=== PATIENT | female | born 1970 | race Caucasian/White ===

== ENCOUNTER → 2016-03-19 | Outpatient (CLI) | payer BC ==
[~2016-03-19] MED LIST: FLUTICASONE PR50 MCG; IBUPROFEN400 MG PO; LORATADINE10 MG PO; OXAYDO5 MG PO; OXYCODONE IR PO; SUDAFED30 MG PO
--- NOTE | 2016-03-19 15:36 | DIAGNOSTIC IMAGING REPORT ---
PROCEDURE: US COMPLETE PELVIC W/TRANSVAG INDICATION: PELVIC PAIN TECHNIQUE: Transabdominal and endovaginal lambert scale and color Doppler sonographic images of the female pelvis were obtained. COMPARISON: CT of the pelvis of 08/04/2013 FINDINGS: TRANSABDOMINAL SCANS: The uterus is of normal size 7.2 x 3.8 x 3.9 cm Kidneys are normal. TRANSVAGINAL SCANS: The uterus is anteverted. Myometrium is normal. The endometrium is vascular and measures 6.5 mm. Right ovary is normal measuring 4.2 x 3.5 x 3.0 cm. The left ovary is measuring 5.9 x 3.2 x 3.5 cm. There is a complex cyst measuring 5.1 x 2.6 x 2.9 cm. IMPRESSION: 1. Complex left ovarian cyst measuring 5.1 x 2.6 x 2.9 cm
--- NOTE | 2016-03-19 16:21 | DIAGNOSTIC IMAGING REPORT ---
PROCEDURE: MG BILATERAL SCREENING W/CAD INDICATION: Pain. Family history breast carcinoma (mother). TECHNIQUE: Bilateral CC and MLO digital views. COMPARISON: Compared to 06/07/2013, 05/31/2012. FINDINGS: Computer-aided detection applied. Mildly dense. No change. IMPRESSION: 1. Negative mammogram. RESULT CODE: 1- Negative. A. A negative report should not delay biopsy if a dominant or clinically suspicious mass is present. 10-15% of cancers are not identified by x-ray. B. A negative report may reinforce clinical impression. C. Adenosis and dense breasts may obscure an underlying neoplasm. D. False positive reports average 6-10%. E.. A yearly screening mammogram is recommended. A reminder letter will be scheduled.
== END ==
LOC: US SRH 13:55
DX: N83.292 Other ovarian cyst, left side (principal); Z12.31 Encounter for screening mammogram for malignant neoplasm of breast; Z80.3 Family history of malignant neoplasm of breast

== ENCOUNTER 2016-03-23 17:20 | Inpatient (IN) | payer BC ==
[~2016-03-23] VITALS: Ht 177.8 cm; Wt 145.8 kg
--- NOTE | 2016-03-23 18:11 | ED ORDER SUMMARY ---
..... Patient: SHARITA CORDOBA OrderSheet [facility] VisitID: [id number] [address] [place] [address] 45y, F Registration Date/Time: 03/23/2016 ORDER SHEET Weight: 141.5 kg (stated) Allergies: Ventolin when given with erythromycin GENERAL ORDERS: Ankle 3 or 4V Right Urgent (17:56 03/23/2016 EKoroleva P.A.-C) (Ack 18:01 LTapper) (18:37 EInderbitzen R.N.) Splint (LE) (Right) (Fiberglass) (19:20 03/23/2016 EKoroleva P.A.-C) (19:41 LMuller) Splint (LE) (Right) (Short Leg Posterior) (19:39 03/23/2016 EKoroleva P.A.-C) (19:41 LMuller) MEDICATION ORDERS: Dilaudid IM 0.5 mg (HIGH ALERT MEDICATION, NOW) (17:56 03/23/2016 EKoroleva P.A.-C) (Cancelled: Other18:03 EKoroleva P.A.-C) Phenergan IM 12.5 mg (HIGH ALERT MEDICATION, NOW) (17:56 03/23/2016 EKoroleva P.A.-C) (Cancelled: Other18:03 EKoroleva P.A.-C) Phenergan IV 12.5 mg (HIGH ALERT MEDICATION, NOW) (18:12 03/23/2016 EKoroleva P.A.-C) (18:20 EInderbitzen R.N.) IV FLUIDS: Dilaudid IV 0.5 mg (HIGH ALERT MEDICATION, NOW) (18:12 03/23/2016 EKoroleva P.A.-C) (18:20 EInderbitzen R.N.) Dilaudid IV 1 mg (HIGH ALERT MEDICATION, NOW) (18:25 03/23/2016 EKoroleva P.A.-C) (18:31 EInderbitzen R.N.) Dilaudid IV 1 mg (HIGH ALERT MEDICATION, NOW) (19:52 03/23/2016 Tata Adam) (19:57 Omkar Luz) ORDER SHEET NOTES: [Electronically signed by Katerine Deras P.A.-C (19:26 03/23/2016)] [Electronically signed by Yen Springer R.N. (20:23 03/23/2016)] [Electronically locked/signed by Yen Springer R.N. (20:23 03/23/2016)]
--- NOTE | 2016-03-23 18:11 | ED NURSING NOTES ---
Clinical Report - Nurses [facility] [address] [place] [address] 03/23/2016 17:21 [id number] TRI[facility] Triage time 17:50 Mar 23 2016. Acuity: LEVEL 3. Chief Complaint: INJURY TO RIGHT ANKLE. 17:50 03/23/16. SEPSIS SCREEN: Sepsis Screen. Negative (no infection suspected/documented). CARA COMA SCORE: Cara Coma Scale: 15- eyes open spontaneously (4); best verbal response- oriented x 4 (5); best motor response- obeys commands (6). --18:02 Yen Springer R.N. 17:50 03/23/16. BP: 140/101. HR: 88. RR: 20. O2 saturation: 100%. Temp: 98.1 F. Pain level now 10/10. --18:02 Yen pSringer R.N. Weight: 141.5 kg stated. Height/Length: 70 inches Per Patient. BMI: 44.8. --17:50 Yen Springer R.N. Medications Loratadine-Pseudoephedrine Oral. --17:57 Yen Springer R.N. Fluticasone Furoate Nasal. --17:57 Yen Springer R.N. Medication/allergy information source: the patient. --18:02 Yen Springer R.N. Allergies Ventolin when given with erythromycin. --17:58 Yen Springer R.N. History Arrived by private vehicle. Historian: patient. Accompanied by family. Mechanism of injury: sustained a twisting injury and fell. She has had trouble walking. No numbness, tingling, weakness, neck pain or back pain. 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 PAST MEDICAL HX: Immunizations: up-to-date. SOCIAL HX: Never smoker. Occasional alcohol use. History of drug use: marijuana. No infectious disease exposure. ABUSE ASSESSMENT: No report of abuse. SELF HARM ASSESSMENT: A self harm assessment was performed. The patient answered "no" to the question "Have you recently felt down, depressed, or hopeless?", "Have you noticed less interest or pleasure in doing things?", "Do you have thoughts of harming or killing yourself?", "Are you here because you tried to hurt yourself?", "Have you ever tried to hurt yourself before today?", "Have you recently had thoughts about harming or killing others?" and "Do you have any dangerous items in your possession?". FALL RISK ASSESSMENT: Fall risk assessment completed. No fall risk identified. NUTRITIONAL RISK ASSESSMENT: The nutritional risk assessment revealed no deficiencies. FUNCTIONAL ASSESSMENT: Functional assessment: no impairments noted. LEARNING NEEDS ASSESSMENT: The learning needs assessment revealed no barriers. SKIN INTEGRITY ASSESSMENT: Skin integrity risk assessment completed. No skin integrity risk identified. --18:02 Yen Springer R.N. PROBLEMS: Allergies. --17:59 Yen Springer R.N. ADDITIONAL SURGERIES: Divinci resection of bladder. --17:59 Yen Springer R.N. Interventions ID band on patient. --18:02 Yen Springer R.N. PHYSICAL ASSESSMENT 17:50 03/23/16. To room via wheelchair. GENERAL / NEURO / PSYCH: Oriented X 4. Alert. Appears in no acute distress. Appears in pain. CVS: Pulses: right dorsalis pedis 2+, left dorsalis pedis 2+, right posterior tibial 2+ and left posterior tibial 2+. EXTREMITIES: The patient was unable to bear weight. Right ankle: tenderness, swelling, ecchymosis and deformity. Limited ROM secondary to pain (diminished plantar flexion, dorsiflexion, inversion and eversion). SKIN: Skin intact. Skin is warm and dry. --18:21 Yen Springer R.N. NURSING PROGRESS NOTES 17:50 03/23/16. The initial plan of care for this patient includes an assessment with efforts to address patient positioning; the presence of pain; impairment of the musculoskeletal system. This plan of care was discussed with the patient and spouse. Cold pack applied to the right ankle. Reassurance given. Patient identifiers checked. Call light placed in reach. Side rails up x 1. Bed placed in lowest position. Brakes of bed on. Patient ready for evaluation. --18:19 Yen Springer R.N. 18:10 03/23/2016 Site #1 started via IV in the left hand with an 20g angiocath, with aseptic technique and good blood return; one attempt. Blood drawn: rainbow set. Labeled in the presence of the patient and held. --18:19 Yen Springer R.N. 18:11 03/23/2016 Dilaudid (HYDROmorphone HCl PF) IVP 0.5 mg given over 1 minute(s) via site #1. Allergies verified, confirmed 5 rights and sedative warning given to the patient. IV patency established. IV site checked: no pain, redness, or swelling. IV flushed thoroughly pre- and post-medication administration. IVP given by RN. --18:20 Yen Springer R.N. <<STRICKEN ENTRY-- 18:12 03/23/2016 PHENERGAN (Promethazine HCl) IVP 12.5 mg given over 5 hour(s) via site #1. Allergies verified and confirmed 5 rights. IV patency established. IV site checked: no pain, redness, or swelling. IV flushed thoroughly pre- and post-medication administration. IVP given by RN. --18:20 Yen Springer R.N. --END STRIKE>> Change to Details. --20:13 Yen Springer R.N. 18:30 03/23/2016 Dilaudid (HYDROmorphone HCl PF) IVP 1 mg given over 1 minute(s) via site #1. Allergies verified, confirmed 5 rights and sedative warning given to the patient. IV patency established. IV site checked: no pain, redness, or swelling. IV flushed thoroughly pre- and post-medication administration. IVP given by RN. --18:31 Yen Springer R.N. 18:36 03/23/16. BP: 141/95. HR: 88. RR: 16. O2 saturation: 95%. Pain level now 6/10. --18:37 Yen Springer R.N. 18:36 03/23/16. ( ortho to see patient). --18:37 Yen Springer R.N. Sugar tong lower extremity splint applied to right leg and ankle by tech and orthopedist. Distal pulses intact, sensation intact and motor within normal limits. --19:41 Deana Gore 19:52 03/23/2016 Dilaudid (HYDROmorphone HCl PF) IVP 1 mg given over 1 minute(s) via site #1. Allergies verified, confirmed 5 rights and sedative warning given to the patient. IV patency established. IV site checked: no pain, redness, or swelling. IV flushed thoroughly pre- and post-medication administration. IVP given by RN. --19:57 Yen Springer R.N. 20:04 03/23/16. BP: 129/94. HR: 84. RR: 16. O2 saturation: 97%. Temp: 98.2 F. Pain level now 6/10. --20:04 Yen Springer R.N. 18:12 03/23/2016 PHENERGAN (Promethazine HCl) IVP 12.5 mg given over 5 minute(s) via site #1. Allergies verified and confirmed 5 rights. IV patency established. IV site checked: no pain, redness, or swelling. IV flushed thoroughly pre- and post-medication administration. IVP given by RN. --20:13 Yen Springer R.N. DISPOSITION / DISCHARGE 20:14 03/23/2016 Site #[address] upon admission; patent. Good blood return present; flushes easily. --20:14 Yen Springer R.N. 20:15 03/23/16. Condition at departure: improved and stable. The goals identified in the patient's plan of care were met. Disposition: observation in Acute Care (208). Transported via stretcher. Report was given to a nurse via a phone call. Report included patient's care, treatment, medications, reviewed medication reconcilliation, and condition (including any recent changes or anticipated changes). All questions were answered. (, CLOVIS). FALL RISK ASSESSMENT: Fall risk assessment completed. No fall risk identified. --20:15 Yen Springer R.N. 20:01 03/23/16. BP: 129/94. HR: 84. RR: 16. O2 saturation: 97%. Temp: 98.2 F. Pain level now 08/15. --20:15 Yen Springer R.N. Departure time: 20:23 Mar 23 2016. --20:23 Yen Springer R.N. Locked/Released at 03/23/2016 20:23 by Yen Springer R.N.
--- NOTE | 2016-03-23 18:11 | ED NURSING NOTES ---
Clinical Report - Nurses [facility] [address] [place] [address] 03/23/2016 17:21 [id number] Triage time 17:50 Mar 23 2016. Acuity: LEVEL 3. Chief Complaint: INJURY TO RIGHT ANKLE. 17:50 03/23/16. SEPSIS SCREEN: Sepsis Screen. Negative (no infection suspected/documented). CARA COMA SCORE: Cara Coma Scale: 15- eyes open spontaneously (4); best verbal response- oriented x 4 (5); best motor response- obeys commands (6). --18:02 Yen Springer R.N. 17:50 03/23/16. BP: 140/101. HR: 88. RR: 20. O2 saturation: 100%. Temp: 98.1 F. Pain level now 10/10. --18:02 Yen Springer R.N. Weight: 141.5 kg stated. Height/Length: 70 inches Per Patient. BMI: 44.8. --17:50 Yen Springer R.N. Medications Loratadine-Pseudoephedrine Oral. --17:57 Yen Springer R.N. Fluticasone Furoate Nasal. --17:57 Yen Springer R.N. Medication/allergy information source: the patient. --18:02 Yen Springer R.N. Allergies Ventolin when given with erythromycin. --17:58 Yen Springer R.N. History Arrived by private vehicle. Historian: patient. Accompanied by family. Mechanism of injury: sustained a twisting injury and fell. She has had trouble walking. No numbness, tingling, weakness, neck pain or back pain. 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 PAST MEDICAL HX: Immunizations: up-to-date. SOCIAL HX: Never smoker. Occasional alcohol use. History of drug use: marijuana. No infectious disease exposure. ABUSE ASSESSMENT: No report of abuse. SELF HARM ASSESSMENT: A self harm assessment was performed. The patient answered "no" to the question "Have you recently felt down, depressed, or hopeless?", "Have you noticed less interest or pleasure in doing things?", "Do you have thoughts of harming or killing yourself?", "Are you here because you tried to hurt yourself?", "Have you ever tried to hurt yourself before today?", "Have you recently had thoughts about harming or killing others?" and "Do you have any dangerous items in your possession?". FALL RISK ASSESSMENT: Fall risk assessment completed. No fall risk identified. NUTRITIONAL RISK ASSESSMENT: The nutritional risk assessment revealed no deficiencies. FUNCTIONAL ASSESSMENT: Functional assessment: no impairments noted. LEARNING NEEDS ASSESSMENT: The learning needs assessment revealed no barriers. SKIN INTEGRITY ASSESSMENT: Skin integrity risk assessment completed. No skin integrity risk identified. --18:02 Yen Springer R.N. PROBLEMS: Allergies. --17:59 Yen Springer R.N. ADDITIONAL SURGERIES: Divinci resection of bladder. --17:59 Yen Springer R.N. Interventions ID band on patient. --18:02 Yen Springer R.N. PHYSICAL ASSESSMENT 17:50 03/23/16. To room via wheelchair. GENERAL / NEURO / PSYCH: Oriented X 4. Alert. Appears in no acute distress. Appears in pain. CVS: Pulses: right dorsalis pedis 2+, left dorsalis pedis 2+, right posterior tibial 2+ and left posterior tibial 2+. EXTREMITIES: The patient was unable to bear weight. Right ankle: tenderness, swelling, ecchymosis and deformity. Limited ROM secondary to pain (diminished plantar flexion, dorsiflexion, inversion and eversion). SKIN: Skin intact. Skin is warm and dry. --18:21 Yen Springer R.N. NURSING PROGRESS NOTES 17:50 03/23/16. The initial plan of care for this patient includes an assessment with efforts to address patient positioning; the presence of pain; impairment of the musculoskeletal system. This plan of care was discussed with the patient and spouse. Cold pack applied to the right ankle. Reassurance given. Patient identifiers checked. Call light placed in reach. Side rails up x 1. Bed placed in lowest position. Brakes of bed on. Patient ready for evaluation. --18:19 Yen Springer R.N. 18:10 03/23/2016 Site #1 started via IV in the left hand with an 20g angiocath, with aseptic technique and good blood return; one attempt. Blood drawn: rainbow set. Labeled in the presence of the patient and held. --18:19 Yen Springer R.N. 18:11 03/23/2016 Dilaudid (HYDROmorphone HCl PF) IVP 0.5 mg given over 1 minute(s) via site #1. Allergies verified, confirmed 5 rights and sedative warning given to the patient. IV patency established. IV site checked: no pain, redness, or swelling. IV flushed thoroughly pre- and post-medication administration. IVP given by RN. --18:20 Yen Srpinger R.N. <<STRICKEN ENTRY-- 18:12 03/23/2016 PHENERGAN (Promethazine HCl) IVP 12.5 mg given over 5 hour(s) via site #1. Allergies verified and confirmed 5 rights. IV patency established. IV site checked: no pain, redness, or swelling. IV flushed thoroughly pre- and post-medication administration. IVP given by RN. --18:20 Yen Springer R.N. --END STRIKE>> Change to Details. --20:13 Yen Springer R.N. 18:30 03/23/2016 Dilaudid (HYDROmorphone HCl PF) IVP 1 mg given over 1 minute(s) via site #1. Allergies verified, confirmed 5 rights and sedative warning given to the patient. IV patency established. IV site checked: no pain, redness, or swelling. IV flushed thoroughly pre- and post-medication administration. IVP given by RN. --18:31 Yen Springer R.N. 18:36 03/23/16. BP: 141/95. HR: 88. RR: 16. O2 saturation: 95%. Pain level now 6/10. --18:37 Yen Springer R.N. 18:36 03/23/16. ( ortho to see patient). --18:37 Yen Springer R.N. Sugar tong lower extremity splint applied to right leg and ankle by tech and orthopedist. Distal pulses intact, sensation intact and motor within normal limits. --19:41 Deana Gore 19:52 03/23/2016 Dilaudid (HYDROmorphone HCl PF) IVP 1 mg given over 1 minute(s) via site #1. Allergies verified, confirmed 5 rights and sedative warning given to the patient. IV patency established. IV site checked: no pain, redness, or swelling. IV flushed thoroughly pre- and post-medication administration. IVP given by RN. --19:57 Yen Springer R.N. 20:04 03/23/16. BP: 129/94. HR: 84. RR: 16. O2 saturation: 97%. Temp: 98.2 F. Pain level now 6/10. --20:04 Yen Springer R.N. 18:12 03/23/2016 PHENERGAN (Promethazine HCl) IVP 12.5 mg given over 5 minute(s) via site #1. Allergies verified and confirmed 5 rights. IV patency established. IV site checked: no pain, redness, or swelling. IV flushed thoroughly pre- and post-medication administration. IVP given by RN. --20:13 Yen Springer R.N. DISPOSITION / DISCHARGE 20:14 03/23/2016 Site #[address] upon admission; patent. Good blood return present; flushes easily. --20:14 Yen Springer R.N. 20:15 03/23/16. Condition at departure: improved and stable. The goals identified in the patient's plan of care were met. Disposition: observation in Acute Care (208). Transported via stretcher. Report was given to a nurse via a phone call. Report included patient's care, treatment, medications, reviewed medication reconcilliation, and condition (including any recent changes or anticipated changes). All questions were answered. (, CLOVIS). FALL RISK ASSESSMENT: Fall risk assessment completed. No fall risk identified. --20:15 Yen Springer R.N. 20:01 03/23/16. BP: 129/94. HR: 84. RR: 16. O2 saturation: 97%. Temp: 98.2 F. Pain level now 08/15. --20:15 Yen Springer R.N. Departure time: 20:23 Mar 23 2016. --20:23 Yen Springer R.N. Locked/Released at 03/23/2016 20:23 by Yen Springer R.N.
--- NOTE | 2016-03-23 18:11 | ED CLINICAL REPORT ---
Clinical Report - Physicians/Mid Levels [facility] [address] [place] [place] [address] 03/23/2016 17:21 [id number] Time Seen: 19:23 Mar 23 2016. Arrived- By private vehicle. Historian- patient. HISTORY OF PRESENT ILLNESS Chief Complaint: Injury to right ankle. The injury happened just prior to arrival. The patient sustained a crush injury. Occurred at home. Patient is experiencing moderate pain. Patient denies injury to the head or neck. (Patient reports prior to arrival, while outside, stepped off 1 step of her back, into Wednesday, sustaining injury to her right ankle, falling. Reports wearing some shoes at the time. Previous fracture to the area.). REVIEW OF SYSTEMS The patient complains of pain on weight bearing. All systems otherwise negative, except as recorded above. PAST HISTORY The patient has had a prior injury to the same area (fracture). SOCIAL HISTORY Never smoker. Alcohol use. History of drug use: marijuana. ADDITIONAL NOTES The nursing notes have been reviewed. PHYSICAL EXAM Vital Signs: 03/23/2016 17:50 BP: 140/101. HR: 88. RR: 20. O2 saturation: 100%. Temp: 98.1 F. Appearance: Alert. Head: Head atraumatic. ENT: Ears normal. Nose normal. CVS: Normal heart rate and rhythm. Heart sounds normal. Respiratory: No respiratory distress. Breath sounds normal. Back: Normal inspection. No tenderness. ROM normal. No vertebral point tenderness or soft tissue tenderness. Skin: Skin intact. Skin warm. Normal skin color. Extremities: Right leg. No tenderness. Right ankle: moderate tenderness and swelling localized to the lateral malleolus and medial malleolus. Limited ROM secondary to pain (diminished plantar flexion, dorsiflexion, inversion and eversion). Medium sized joint effusion present. No ecchymosis or foreign body. Not localized to the Achilles tendon. Right foot. No erythema or tenderness. Gait: The patient was unable to bear weight. Neuro, Vascular and Tendons: Vascular status intact. No pulse deficit present. No sensory deficit. Neuro: Oriented X 3. No motor deficit. LABS, X-RAYS, AND EKG Rt Ankle X-ray: (IMPRESSION: 1. Severely comminuted trimalleolar fracture subluxation of the right ankle (distal fibula, medial malleolus, posterior malleolus, subluxation of the mortise joint with probable disruption of the syndesmosis). Electronically Final signed by:Vincenzo Tavarez MD 03/23/2016 6:37:02 PM). PROGRESS AND PROCEDURES Course of Care: Patient with trimalleolar fracture in the ER, unstable. Last ate about 2-3 hours previously. I discussed the case with Dr.. Walker, who will see patient in er. 185 Dr. Walker in ER to see patient, and further management, will admit to hospital. 03/23/2016 18:36 BP: 141/95. HR: 88. RR: 16. O2 saturation: 95%. Patient is stable. Symptoms better. Patient/family counseled. Disposition: Admitted. CLINICAL IMPRESSION Displaced right trimalleolar fracture. (Electronically signed by Katerine Deras P.A.-C 03/23/2016 19:26)
--- NOTE | 2016-03-23 18:11 | ED CLINICAL REPORT ---
Clinical Report - Physicians/Mid Levels [facility] [address] [place] [address] 03/23/2016 17:21 [id number] Time Seen: 19:23 Mar 23 2016. Arrived- By private vehicle. Historian- patient. HISTORY OF PRESENT ILLNESS Chief Complaint: Injury to right ankle. The injury happened just prior to arrival. The patient sustained a crush injury. Occurred at home. Patient is experiencing moderate pain. Patient denies injury to the head or neck. (Patient reports prior to arrival, while outside, stepped off 1 step of her back, into Wednesday, sustaining injury to her right ankle, falling. Reports wearing some shoes at the time. Previous fracture to the area.). REVIEW OF SYSTEMS The patient complains of pain on weight bearing. All systems otherwise negative, except as recorded above. PAST HISTORY The patient has had a prior injury to the same area (fracture). SOCIAL HISTORY Never smoker. Alcohol use. History of drug use: marijuana. ADDITIONAL NOTES The nursing notes have been reviewed. PHYSICAL EXAM Vital Signs: 03/23/2016 17:50 BP: 140/101. HR: 88. RR: 20. O2 saturation: 100%. Temp: 98.1 F. Appearance: Alert. Head: Head atraumatic. ENT: Ears normal. Nose normal. CVS: Normal heart rate and rhythm. Heart sounds normal. Respiratory: No respiratory distress. Breath sounds normal. Back: Normal inspection. No tenderness. ROM normal. No vertebral point tenderness or soft tissue tenderness. Skin: Skin intact. Skin warm. Normal skin color. Extremities: Right leg. No tenderness. Right ankle: moderate tenderness and swelling localized to the lateral malleolus and medial malleolus. Limited ROM secondary to pain (diminished plantar flexion, dorsiflexion, inversion and eversion). Medium sized joint effusion present. No ecchymosis or foreign body. Not localized to the Achilles tendon. Right foot. No erythema or tenderness. Gait: The patient was unable to bear weight. Neuro, Vascular and Tendons: Vascular status intact. No pulse deficit present. No sensory deficit. Neuro: Oriented X 3. No motor deficit. LABS, X-RAYS, AND EKG Rt Ankle X-ray: (IMPRESSION: 1. Severely comminuted trimalleolar fracture subluxation of the right ankle (distal fibula, medial malleolus, posterior malleolus, subluxation of the mortise joint with probable disruption of the syndesmosis). Electronically Final signed by:Vincenzo Tavarez MD 03/23/2016 6:37:02 PM). PROGRESS AND PROCEDURES Course of Care: Patient with trimalleolar fracture in the ER, unstable. Last ate about 2-3 hours previously. I discussed the case with Dr.. Walker, who will see patient in er. 185 Dr. Walker in ER to see patient, and further management, will admit to hospital. 03/23/2016 18:36 BP: 141/95. HR: 88. RR: 16. O2 saturation: 95%. Patient is stable. Symptoms better. Patient/family counseled. Disposition: Admitted. CLINICAL IMPRESSION Displaced right trimalleolar fracture. (Electronically signed by Katerine Deras P.A.-C 03/23/2016 19:26)
--- NOTE | 2016-03-23 18:11 | ED ORDER SUMMARY ---
..... Patient: SHARITA CORDOBA OrderSheet [facility] VisitID: [id number] [address] [place] [address] 45y, F Registration Date/Time: 03/23/2016 ORDER SHEET Weight: 141.5 kg (stated) Allergies: Ventolin when given with erythromycin GENERAL ORDERS: Ankle 3 or 4V Right Urgent (17:56 03/23/2016 EKoroleva P.A.-C) (Ack 18:01 LTapper) (18:37 EInderbitzen R.N.) Splint (LE) (Right) (Fiberglass) (19:20 03/23/2016 EKoroleva P.A.-C) (19:41 LMuller) Splint (LE) (Right) (Short Leg Posterior) (19:39 03/23/2016 EKoroleva P.A.-C) (19:41 LMuller) MEDICATION ORDERS: Dilaudid IM 0.5 mg (HIGH ALERT MEDICATION, NOW) (17:56 03/23/2016 EKoroleva P.A.-C) (Cancelled: Other18:03 EKoroleva P.A.-C) Phenergan IM 12.5 mg (HIGH ALERT MEDICATION, NOW) (17:56 03/23/2016 EKoroleva P.A.-C) (Cancelled: Other18:03 EKoroleva P.A.-C) Phenergan IV 12.5 mg (HIGH ALERT MEDICATION, NOW) (18:12 03/23/2016 EKoroleva P.A.-C) (18:20 EInderbitzen R.N.) IV FLUIDS: Dilaudid IV 0.5 mg (HIGH ALERT MEDICATION, NOW) (18:12 03/23/2016 EKoroleva P.A.-C) (18:20 EInderbitzen R.N.) Dilaudid IV 1 mg (HIGH ALERT MEDICATION, NOW) (18:25 03/23/2016 EKoroleva P.A.-C) (18:31 EInderbitzen R.N.) Dilaudid IV 1 mg (HIGH ALERT MEDICATION, NOW) (19:52 03/23/2016 Tata Adam) (19:57 Omkar Luz) ORDER SHEET NOTES: [Electronically signed by Katerine Deras P.A.-C (19:26 03/23/2016)] [Electronically signed by Yen Springer R.N. (20:23 03/23/2016)] [Electronically locked/signed by Yen Springer R.N. (20:23 03/23/2016)]
--- NOTE | 2016-03-23 18:40 | DIAGNOSTIC IMAGING REPORT ---
PROCEDURE: XR ANKLE 3 OR 4 VIEWS - RIGHT INDICATION: TRAUMA/INJURY TECHNIQUE: Four views. COMPARISON: None. FINDINGS: There is a severely comminuted trimalleolar fracture subluxation of the right ankle. There is a severely comminuted spiral oblique fracture the right distal fibular shaft and metaphysis with moderate of ventral apical angulation with mild lateral / posterior lateral displacement. There is a transverse fracture of the medial malleolus with one half bone width of lateral displacement. There is a comminuted vertical fracture of the posterior lateral distal tibia (posterior malleolus) with moderate impaction. There is 50% posterior subluxation and lateral subluxation of the talus with probable disruption of the syndesmosis. IMPRESSION: 1. Severely comminuted trimalleolar fracture subluxation of the right ankle (distal fibula, medial malleolus, posterior malleolus, subluxation of the mortise joint with probable disruption of the syndesmosis).
--- NOTE | 2016-03-23 19:12 | Progress Note ---
Subjective General Fell this pm and has a trimalleolar fracture of the right ankle. Admitted for ORIF
--- NOTE | 2016-03-23 19:12 | Progress Note ---
Subjective General Fell this pm and has a trimalleolar fracture of the right ankle. Admitted for ORIF
--- NOTE | 2016-03-23 20:24 | ED MED RECONCILIATION SUMMARY ---
Patient: SHARITA CORDOBA Medication Reconciliation Report [facility] VisitID: [id number] [address] [place] [address] 45y, F Registration Date/Time: 03/23/2016 Weight: 141.5 kg Height/Length: 70 in. BMI: 44.8 ALLERGIES: Ventolin when given with erythromycin The patient's Home Medications are listed below: THE FOLLOWING MEDICATIONS NEED TO BE RECONCILED: Fluticasone Furoate Nasal Loratadine-Pseudoephedrine Oral The source(s) of the original Home Medication information: patient The following Medications were given to the patient in the Emergency Department: Dilaudid [IVP] IVP 0.5 mg, administered: 03/23/2016 6:11:00 PM PHENERGAN [IVP] IVP 12.5 mg, administered: 03/23/2016 6:12:00 PM Dilaudid [IVP] IVP 1 mg, administered: 03/23/2016 6:30:00 PM Dilaudid [IVP] IVP 1 mg, administered: 03/23/2016 7:52:00 PM The following Medications were prescribed to the patient: None.
--- NOTE | 2016-03-23 20:24 | ED MAR SUMMARY ---
..... Medication Administration Record [facility] [address] [place] [address] Patient: SHARITA CORDOBA Visit ID: [id number] 45y, F Weight: 141.5 kg Height/Length: 70 in BMI: 44.8 ALLERGIES: Ventolin when given with erythromycin Given 18:11 03/23/2016 Yen Springer R.N. Medication Administered: DILAUDID [IVP] (HYDROMORPHONE HCL PF), Dose: 0.5 mg IVP over 1 minute(s), Site: #1 left hand. Medication Ordered: Dilaudid IV 0.5 mg (HIGH ALERT MEDICATION, NOW). Given 18:12 03/23/2016 Yen Springer R.N. Medication Administered: PHENERGAN [IVP] (PROMETHAZINE HCL), Dose: 12.5 mg IVP over 5 minute(s), Site: #1 left hand. Medication Ordered: Phenergan IV 12.5 mg (HIGH ALERT MEDICATION, NOW). Given 18:30 03/23/2016 Yen Springer R.N. Medication Administered: DILAUDID [IVP] (HYDROMORPHONE HCL PF), Dose: 1 mg IVP over 1 minute(s), Site: #1 left hand. Medication Ordered: Dilaudid IV 1 mg (HIGH ALERT MEDICATION, NOW). Given 19:52 03/23/2016 Yen Springer R.N. Medication Administered: DILAUDID [IVP] (HYDROMORPHONE HCL PF), Dose: 1 mg IVP over 1 minute(s), Site: #1 left hand. Medication Ordered: Dilaudid IV 1 mg (HIGH ALERT MEDICATION, NOW).
--- NOTE | 2016-03-23 20:24 | ED MED RECONCILIATION SUMMARY ---
Patient: SHARITA CORDOBA Medication Reconciliation Report [facility] VisitID: [id number] [address] [place] [address] 45y, F Registration Date/Time: 03/23/2016 Weight: 141.5 kg Height/Length: 70 in. BMI: 44.8 ALLERGIES: Ventolin when given with erythromycin The patient's Home Medications are listed below: THE FOLLOWING MEDICATIONS NEED TO BE RECONCILED: Fluticasone Furoate Nasal Loratadine-Pseudoephedrine Oral The source(s) of the original Home Medication information: patient The following Medications were given to the patient in the Emergency Department: Dilaudid [IVP] IVP 0.5 mg, administered: 03/23/2016 6:11:00 PM PHENERGAN [IVP] IVP 12.5 mg, administered: 03/23/2016 6:12:00 PM Dilaudid [IVP] IVP 1 mg, administered: 03/23/2016 6:30:00 PM Dilaudid [IVP] IVP 1 mg, administered: 03/23/2016 7:52:00 PM The following Medications were prescribed to the patient: None.
--- NOTE | 2016-03-23 20:24 | ED MAR SUMMARY ---
..... Medication Administration Record [facility] [address] [place] [place] [address] Patient: SHARITA CORDOBA Visit ID: [id number] 45y, F Weight: 141.5 kg Height/Length: 70 in BMI: 44.8 ALLERGIES: Ventolin when given with erythromycin Given 18:11 03/23/2016 Yen Springer R.N. Medication Administered: DILAUDID [IVP] (HYDROMORPHONE HCL PF), Dose: 0.5 mg IVP over 1 minute(s), Site: #1 left hand. Medication Ordered: Dilaudid IV 0.5 mg (HIGH ALERT MEDICATION, NOW). Given 18:12 03/23/2016 Yen Springer R.N. Medication Administered: PHENERGAN [IVP] (PROMETHAZINE HCL), Dose: 12.5 mg IVP over 5 minute(s), Site: #1 left hand. Medication Ordered: Phenergan IV 12.5 mg (HIGH ALERT MEDICATION, NOW). Given 18:30 03/23/2016 Yen Springer R.N. Medication Administered: DILAUDID [IVP] (HYDROMORPHONE HCL PF), Dose: 1 mg IVP over 1 minute(s), Site: #1 left hand. Medication Ordered: Dilaudid IV 1 mg (HIGH ALERT MEDICATION, NOW). Given 19:52 03/23/2016 Yen Springer R.N. Medication Administered: DILAUDID [IVP] (HYDROMORPHONE HCL PF), Dose: 1 mg IVP over 1 minute(s), Site: #1 left hand. Medication Ordered: Dilaudid IV 1 mg (HIGH ALERT MEDICATION, NOW).
--- NOTE | 2016-03-23 20:24 | ED DISCHARGE INSTRUCTIONS ---
Patient: SHARITA CORDOBA General Instructions [facility] VisitID: [id number] [place] [address] 45y, F Registration Date/Time: 03/23/2016 Displaced right trimalleolar fracture. ADDITIONAL INFORMATION Fracture:Ankle You have a break (fracture) of the ankle. This causes local pain, swelling and sometimes bruising. A fracture is treated with a splint or cast or special boot. It will take about 4-6 weeks for the fracture to heal. Surgery may be needed to fix severe injuries. Home Care: You will be given a splint, cast or boot to prevent movement at the ankle joint. Unless you were told otherwise, use crutches or a walker and do not bear weight on the injured leg until cleared by your doctor to do so. (Crutches and walkers can be rented at many pharmacies and surgical/orthopedic supply stores). Do not put weight on a splint; it will break. Keep your leg elevated to reduce pain and swelling. When sleeping, place a pillow under the injured leg. When sitting, support the injured leg so it is level with your waist. This is very important during the first 48 hours. Apply an ice pack (ice cubes in a plastic bag, wrapped in a towel) over the injured area for 20 minutes every 1-2 hours the first day. You can place the ice pack directly over the splint/cast. Continue with ice packs 3-4 times a day for the next two days, then as needed for the relief of pain and swelling. Keep the cast/splint/boot completely dry at all times. Bathe with your cast/splint/boot out of the water, protected with a large plastic bag, rubber-banded at the top end. If a boot or fiberglass cast/splint gets wet, you can dry it with a hair-dryer. You may use acetaminophen (Tylenol) or ibuprofen (Motrin, Advil) to control pain, unless another pain medicine was prescribed. [ NOTE : If you have chronic liver or kidney disease or ever had a stomach ulcer or GI bleeding, talk with your doctor before using these medicines.] Follow Up with your doctor in one week, or as advised by our staff, to be sure the bone is healing properly. If you were given a splint, it may be changed to a cast at your follow-up visit. [NOTE: A radiologist will review any X-rays that were taken. We will notify you of any new findings that may affect your care.] Get Prompt Medical Attention If Any Of The Following Occur: The plaster cast or splint becomes wet or soft The fiberglass cast or splint remains wet for more than 24 hours Increased tightness or pain under the cast or splint Toes become swollen, cold, blue, numb or tingly You have been given the following additional information: Fracture, Ankle (General) (Electronically signed by Katerine Deras P.A.-C 03/23/2016 19:26)
[2016-03-23 20:34] VITALS: BP 136/85
--- NOTE | 2016-03-23 20:36 | HISTORY AND PHYSICAL ---
ADMITTED: 03/23/2016 CHIEF COMPLAINT: 1. Right ankle pain HISTORY OF PRESENT ILLNESS: The patient was in her usual state of fair to good health when she suffered a fall. She was out walking her dog and she stepped in the mud , slipped and fell down and suffered a comminuted and displaced fracture of the right ankle and is being admitted for care of the same. MEDICAL/SURGICAL HISTORY: Past history: Positive on a number of accounts. She has had bladder cancer and had a bladder resection procedure, is not on any chemotherapy or radiation treatment and it has now been 3 years ago and for as much as she knows , she has been cured of her bladder cancer. She recently was found to have an ovarian cyst and is scheduled to see an entry specialist for care of that problem. She has diverticulosis and has had diverticulitis, which was treated just with antibiotic treatment. She has problems with her hearing, which she relates to some fertility drugs that she was taking that she thinks damaged her hearing. She has had previous surgery for placement of PE tubes for correction of a deviated septum, and for the bladder cancer as noted above. She has a history of an old fracture of the right ankle a number of years ago. MEDICATIONS: 1. She gives no history of current medications. ALLERGIES: 1. SHE IS ALLERGIC TO MYRBETRIQ. 2. POSSIBLY TO ERYTHROMYCIN. 3. VENTOLIN. SHE SAID SHE WAS ON THOSE MEDICATIONS AND JUST BEGAN FEELING UNWELL AND SHE WAS TAKEN OFF THEM AND GOT BETTER. 4. SHE HAS NO OTHER KNOWN ALLERGIES. SOCIAL HISTORY: Positive in that she is a former smoker and she does use some occasional marijuana currently. FAMILY HISTORY: Negative for any bleeding or anesthesia problems. REVIEW OF SYSTEMS: Negative for loss of consciousness, seizure disorder, problems with vision, balance or hearing. CARDIORESPIRATORY: Negative for shortness of breath, chest pain, cough, congestion, fever or chills. GASTROINTESTINAL: Positive in that she has had some nausea and some recent diarrhea, but no blood in the stools and no vomiting. GENITOURINARY: Negative for any dysuria or hematuria. She does have frequency of urination and has some problems with bladder control since she has had her bladder resection surgery. With respect to her laboratory work, she says she has had on a number of occasions elevated liver enzymes, although insofar as she is aware she does not have hepatitis. She denies diabetes, hypertension, peptic ulcer disease, [place], CVA, tuberculosis, any other cancers or tumors. PHYSICAL EXAMINATION: HEENT: Shows her head to be normocephalic and atraumatic. Her eyes are clear. Her hearing is grossly normal. There is no drainage from the ear canals. The mouth and posterior oropharynx are clear and The teeth are in good repair. The tongue is midline. NECK: Without jugular venous distention. CHEST: Symmetrical. HEART: Regular rate and rhythm. No murmurs are heard. LUNGS: Clear to auscultation. ABDOMEN: Soft and she is moderately obese. She does have some active bowel sounds that are present. BACK: In the spine, she does have some mild tenderness over the lumbosacral spine, but no palpable deformities are present. There is no tenderness involving the CVA regions. EXTREMITIES: The right lower extremity, she does have the toes, which are warm. The capillary refilling is less than 1 second. She has light touch sensation present throughout and active dorsiflexion, plantarflexion of the toes is present. The compartments are soft. She has some 1-2+ edema at the ankle. There are no open skin wounds and there is just a mild deformity. LAB/IMAGING: Her x-rays show her to have a subluxed ankle joint and there is a fracture involving the posterolateral plafond, as well as the comminuted fracture of the distal fibula and of the medial malleolus of the tibia. IMPRESSION: 1. The analysis then is comminuted displaced fracture involving the right ankle joint. PLAN: Will be for open reduction, internal fixation. We will plan to do that tomorrow barring unforeseen complication or problem. I have explained to her the nature of the surgery, where the incisions would be, how we do the repair work, the risk of deep venous thrombosis, of infection and problems with healing, of stiffness, of chronic pain in the ankle, of anesthesia complications including and she understands and accepts, and we will plan to proceed with the surgery tomorrow barring unforeseen complication or problem.
[2016-03-23] MEDS ORDERED: LORATADINE10 MG PO (21:29)
[2016-03-23] MEDS ORDERED: SUDAFED30 MG PO (21:31)
[2016-03-23] MEDS ORDERED: FLUTICASONE PR50 MCG (21:32)
[2016-03-24] VITALS (8 sets, daily range): BP systolic 94–153; BP diastolic 60–84
--- NOTE | 2016-03-24 18:25 | Postoperative Progress Note ---
Postop Progress Note Preoperate Diagnosis: Comminuted, displaced fracture right ankle. Compartment syndrome. Postoperative Diagnosis: Same Surgeon: betsy Anesthesia: Spinal Findings: As above Procedure: ORIF right ankle Complications? No Condition: Stable EBL: 100cc Blood Administered: 0 Specimen(s) removed? No Grafts or Implants? Yes Graft/Implant type: Plates and screws right ankle . (See nursing notes for details of grafts/implants)
--- NOTE | 2016-03-24 19:37 | DIAGNOSTIC IMAGING REPORT ---
PROCEDURE: XR FLUOROSCOPY OVER 1 HOUR INDICATION: SURGERY TECHNIQUE: C-arm fluoroscopy provided to Dr. Walker for right ankle ORIF Fluoroscopy time 4 minutes 31 seconds, 14 mGy). COMPARISON: Right ankle x-ray 03/23/2016 FINDINGS: AP and lateral C-arm views. Two lag screws through the medial malleolus, two lag screws through the posterior malleolus and side plate with multiple screws fixating the distal fibula. Normal alignment and positioning of the bones. IMPRESSION: 1. C-arm fluoroscopy for right ankle ORIF (performed by Dr. Walker)
--- NOTE | 2016-03-24 19:38 | OPERATIVE REPORT ---
DATE OF SURGERY: 03/24/2016 SURGEON: NANCY MARTINEZ MD PREOPERATIVE DIAGNOSIS: 1. Comminuted displaced unstable fracture of the right ankle POSTOPERATIVE DIAGNOSIS: 1. Comminuted displaced unstable fracture of the right ankle PROCEDURE PERFORMED: 1. Open reduction, internal fixation of right ankle fracture CONDITION: She is in stable condition. ESTIMATED BLOOD LOSS: Somewhere between 100-200 mL. COMPLICATIONS: None. PATHOLOGY SPECIMEN: Sent to the laboratory was none. SURGICAL TECHNIQUE: The patient was taken to the operating room, where she was given for spinal and then some general anesthesia. Prior to the surgery she was complaining of some numbness in the toes and looks like already starting to develop a compartment syndrome in the leg where she had pain with passive extension of the toes and was already getting some numbness and had difficulty with dorsiflexion of the toes and so addition of the fracture looked like she was developing a compartment syndrome and the ankle surely was tight. We did put a tourniquet on, we prepped and draped her in usual sterile fashion, made a curving longitudinal incision over the lateral aspect of the ankle, carried down through subcutaneous tissue, exposed the distal fibula. She had a very comminuted fracture extending at least the mid and distal thirds of the fibula, maybe a little bit higher, and there was also disruption of the posterior aspect of the tibial plafond and rupture of the anterior distal tibiofibular ligaments. The patient had exposure of the bone and we tied together a couple of the fragments of the fibula where she had a longitudinal split went and we were able under direct visualization to reduce the posterior malleolar fragment and then place 2 screws from anterior to posterior. We did not have to really do any soft tissue dissection to get at the front of the tibia as she had torn loose all the connections clear across to the medial side and up again, almost to the mid and distal thirds of the tibia, so it was relatively easy to get at it and we placed a couple of screws from anterior to posterior using cannulated screws, placing the cannulated pins first and then over drilling with the cannulated drill, measuring with the depth gauge, countersinking with the countersink actually from the Synthes set and then placing the appropriate length of the first cannulated screw and then we did not have quite the right length of cannulated screw for the second one, so I used one of the 4 mm cancellous screws from the Synthes set. With this, we had excellent stable fixation of the posterior malleolus. Then went back and reassembled the fibula using 0.062 inch diameter K-wires to first get it stabilized in the correct orientation with respect to the tibia and at this correct length as confirmed by both direct visualization and also by fluoroscopy and once we got the distal end stabilized then we stabilized the intermediate fragments with suture and clamps and then took the longest 1/3 tubular plate we had, bent it to conform to the lateral aspect of the fibula and secured it in place, first with the distal screw and then adjusting the length and placing proximal screws. Distal screws were cancellous screws and more proximal screws, cortical screws. Each of the screw holes was drilled with a 2.5 mm diameter drill and then depth was determined by measuring with the depth gauge. We got down to where we were at the last hole just above the level of the joint and I checked the stability and there was clearly some instability as was expected of the distal tibiofibular joint and of the ankle with the tendency for the talus to sublux laterally. So we put a syndesmosis screw across, again ensuring that the syndesmosis really was reduced appropriately and then drilling across with the 2.5 mm diameter drill, measuring with the depth gauge and placing appropriate length of self-tapping 4 mm cancellous screw. With this, we had good stable fixation of the lateral side, the medial side was still somewhat displaced. I tried to reduce it closed. We really did not want to open it because she was pretty swollen and so I tried to reduce it closed, I was able to get a perfect reduction and pinned it a couple times with the pins from the cannulated screws, tried to put a cannulated screw across there, but just we could get what was really a truly accurate reduction, so I opened it with the longitudinal incision under direct visualization, reduced the fracture and then placed a cannulated screw towards the posterior aspect of the fragment, putting in first the guidewire, and then overdrilling the guidewire and placing appropriate length of screw and then placing a 0.062 inch diameter K-wire anterior to that and across the fracture site, bending the end of the pin over, clipping it short and seating it down against the bone and with this, we had almost perfect anatomic alignment there achieved as well, so with this the ankle was stable. There was no crepitation, with full range of motion, and closed using 2-0 Polysorb nonabsorbable braided suture for the subcutaneous layer and then running 3-0 nylon suture for the skin and then just some interrupted and running nylon suture for the medial side. To close the skin I took the pressure monitoring device and measured the compartment pressures and they were unfortunately still elevated, varying between 43 and 48 in the anterior compartment and about 50-55 in the deep posterior compartment and so went back, took the nylon sutures out of the lateral incision, lying the skin to gape open and leaving it deeper, subcutaneous sutures in place, which had been placed fairly loosely, but at least provided soft tissue closure over the plate and over the bone and went back and measured the pressures. This time the pressures in both compartments were between 25 and 27, which is acceptable, and so we dressed with Xeroform, with multiple ABD pads, loosely wrapped with sterile Webril, put a sugar-tong splint with the ankle in neutral position and then loosely wrapped with an Emery bandage to secure it in place. Once this had hardened she was awakened, she was taken to the recovery room. We did inflate the tourniquet after making the initial approach.
--- NOTE | 2016-03-24 19:41 | DIAGNOSTIC IMAGING REPORT ---
PROCEDURE: XR ANKLE 1 OR 2 VIEWS - RIGHT INDICATION: post op ORIF TECHNIQUE: AP and lateral views COMPARISON: Left ankle x-ray 03/23/2016 FINDINGS: Lag screw and K-wire through the medial malleolus, two lag screws through the posterior malleolus, side plate and multiple screws overlie the distal fibula. Normal alignment and positioning of the bone fragments. Ankle mortise is intact. Splint in place. IMPRESSION: 1. Right ankle trimalleolar fracture ORIF
[2016-03-25 03:10] VITALS: BP 136/54
[2016-03-25 07:20] VITALS: BP 126/57
--- NOTE | 2016-03-25 08:35 | Progress Note ---
Subjective General Mild pain this am with good relief from meds. Splint is in good condition. NMV intact today and she has no pain with passive extension of the toes. There is light touch sensation present throughout and she can actively Df/PF them. Plan for elevation and rest today. She will need wound closure and that will likely take 7-10 days at minimum.
[2016-03-25 10:27] VITALS: BP 117/45
[2016-03-25 14:25] VITALS: BP 112/56
[2016-03-25 18:01] VITALS: BP 135/68
[2016-03-25 22:52] VITALS: BP 106/48
[2016-03-26 02:36] VITALS: BP 111/40
[2016-03-26 06:41] VITALS: BP 119/63
--- NOTE | 2016-03-26 09:07 | Progress Note ---
Subjective General VSS Afebrile Hgb A1c 7.2 She again has some tingling in the toes. There is some mild pain with passive extension also. She does have light touch sensation present throughout. Splint and bandages all removed with good result. The tingling was much better and the sensation intact throughout. The pain with passive extension resolved as well. I will keep her on Ancef as long as the wound remains open. Hgb A1c is elevated and the insulin stopped for ? reason. I will contnue the insulin sliding scale and switch to carb controlled diet.
[2016-03-26 10:22] VITALS: BP 127/87
[2016-03-26 14:30] VITALS: BP 121/66
[2016-03-26 18:20] VITALS: BP 126/79; BP 139/74
[2016-03-26 22:29] VITALS: BP 136/84
[2016-03-27 01:43] VITALS: BP 130/66
[2016-03-27 06:58] VITALS: BP 131/72
--- NOTE | 2016-03-27 10:44 | PROGRESS NOTE ---
DATE OF SERVICE: 03/27/2016 ATTENDING PHYSICIAN/PROVIDER: Qian Osullivan MD HISTORY OF PRESENT ILLNESS: The patient is status post ORIF of her right ankle fracture with a complication of compartment syndrome. Secondary to that, although she has a subcutaneous closure, she does not have skin closure. Dr. Walker left the skin open as that relieved her inner compartmental pressures. PHYSICAL EXAMINATION: On physical examination today, there is no cellulitis. Her wound looks good. Her wound is gapped about 5 mm throughout on the lateral side of her right ankle. No evidence of infection. Sterile dressing was applied. IMPRESSION: 1. Status post right ankle open reduction internal fixation with compartment syndrome and open wound, lateral. PLAN: The patient is going to have wound closure tomorrow morning. I discussed treatment options including wound remaining open versus closure and possible complications including but not limited to infection and recurrent compartment syndrome, nerve and vessel injury, pneumonia, stroke, heart attack. The patient understands and agrees.
[2016-03-27 14:25] VITALS: BP 131/72
--- NOTE | 2016-03-27 14:50 | Progress Note ---
Subjective General Consult note dictated: 45 y.o obese female with right ankle fx [id number]. Asked to consult for DM. She states she doesn't want to take any meds. Will work on diet, treat with SSI in hospital and f/u with PMD. Signing off for care- nutrition consult.
--- NOTE | 2016-03-27 18:38 | CONSULTATION REPORT ---
DATE OF CONSULTATION: 03/27/2016 CHIEF COMPLAINT: 1. Orthopedics has asked me to consult on the patient regarding diabetes and an A1c of 7.2 HISTORY OF PRESENT ILLNESS: The patient is a 45-year-old female who presented to the emergency room after a slip in the mud, and she fell and had a comminuted displaced fracture of the right ankle and taken to the OR. She was noted to have some elevation in her blood sugars mildly, and an A1c was drawn, which showed 7.2. She states also that she has had elevated blood sugars in her doctor's office in the past as well. She has refused to take any medications for this, though the primary provider has tried to start her on metformin. She states that she was treated for fertility in the past, and she had her liver damaged by metformin. She also has had bladder cancer. MEDICAL/SURGICAL HISTORY: Medical history is of bladder cancer, which she had a bladder resection. She has had ovarian cyst. She has had fertility issues, and she also feels that her facility drugs may have caused problems with her hearing. She has had an old fracture of the right ankle a number of years ago. MEDICATIONS: 1. She denies. ALLERGIES: 1. SHE SAYS SHE IS ALLERGIC TO MYRBETRIQ. 2. ALSO TO POSSIBLE ERYTHROMYCIN WITH VENTOLIN TAKEN AT THE SAME TIME. 3. 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 4. VESICARE CREATED PROBLEMS WELL. SOCIAL HISTORY: She lives with her . She is a former smoker, occasional marijuana use. FAMILY HISTORY: Negative for any diabetes. Her mother did of breast cancer as well. REVIEW OF SYSTEMS: She states that she has been trying to use her Fit-Bit. She has been conscious about her eating. She did lose about 17 pounds, but gained back 10, within the last few months. She does have some frequency of urination and some problems with bladder control. She denies any issues of heart attack, stroke or any other cancer. PHYSICAL EXAMINATION: GENERAL: She is an alert female who is talkative and appears to be in no distress. VITAL SIGNS: Blood pressure of 131/72, heart rate of 92, respirations 18, temperature 98.1, saturating 98% on room air. HEENT: Extraocular movements intact. Pupils equal, round, and reactive to light. Oropharynx is clear, with moist mucous membranes. NECK: Supple, without lymphadenopathy. LUNGS: Clear to auscultation bilaterally. HEART: Regular rate and rhythm. ABDOMEN: Soft. It is obese. It is nontender. GENITOURINARY: Deferred. RECTAL: Deferred. BREAST: Deferred. NEUROLOGIC: Cranial nerves II-XII intact. Strength and sensation grossly intact, other than right ankle is in a splint and has dressing on it. It is clean, dry, and intact. She has bruising on her right lower leg and toe area. She is able to wiggle her toes and has normal capillary reflex. LAB/IMAGING: White count was 9.6 this a.m., down from 18.4, hematocrit 30.2 postop, and platelets of 292. An A1c is 7.2, glucose in the 142 range. The rest of her Chem- 7 is normal, and INR was 1.0 on admit and urinalysis was negative, other than a few bacteria. IMPRESSION: 1. Diabetes type 2 with an A1c greater than 6.5. Offered metformin. She is not going to take this because of history of possible liver problems related to this. PLAN: 1. I recommend that she follow up with her primary provider. I do think of that as a common reaction to metformin. 2. She is not really interested or willing to take any of the GOP1 injections or other medicines at this point because she wants to talk about any of this with her as well as her regular provider, who she sees Dr. Bird. 3. Obesity. Discussed that if she does everything the same, likely she will worsen over time with her diabetes and end up on insulin, and I strongly recommend that she work on her diet and exercise when able, considering she is unwilling to take medications. 4. History of abnormal liver functions. Currently, the patient had normal liver functions on her initial evaluation, with a minimal elevation of AST at 45 and direct bilirubin was less than 0.05 and bilirubin total was 0.5, ALT was 54. So I would have the patient seen by the dietitian while she is here, hold off on anything other than low-dose insulin sliding scale and have her follow up with her regular provider as an outpatient, as she is unwilling to start on any medications at this time for her diabetes.
[2016-03-27 18:49] VITALS: BP 153/58
[2016-03-27 22:28] VITALS: BP 164/68
[2016-03-28] VITALS (7 sets, daily range): BP systolic 113–145; BP diastolic 48–78
--- NOTE | 2016-03-29 00:05 | OPERATIVE REPORT ---
DATE OF SURGERY: 03/28/2016 SURGEON: Qian Osullivan MD PREOPERATIVE DIAGNOSIS: 1. Open wound, lateral right ankle POSTOPERATIVE DIAGNOSIS: 1. Open wound, lateral right ankle PROCEDURE PERFORMED: 1. Right wound closure SURGICAL TECHNIQUE: The patient was placed in supine position on the operating table. After general anesthesia was obtained, her right leg was prepped and draped in the usual fashion. The wound was cleaned with a pulse lavage system and was evaluated for closure. The skin was not tight, and the skin edges could be easily approximated. A stapler was used to try to pull the edges in reasonably close approximation without pulling them tight or putting a lot of tension on the skin edges. That was achieved with a skin stapler. A sterile dressing was applied. The patient tolerated the procedure well, had good capillary refill at the end of the procedure. Her foot was warm.
--- NOTE | 2016-03-29 00:13 | PROGRESS NOTE ---
DATE OF SERVICE: 03/28/2016 ATTENDING PHYSICIAN/PROVIDER: Qian Osullivan MD SUBJECTIVE: The patient is in the recovery room now, and I checked her right foot for circulation. OBJECTIVE: She has good capillary refill, good warmth, good sensation, and has good both active and passive extension and flexion without unexpected discomfort. ASSESSMENT: 1. Resolving compartment syndrome PLAN: The patient is going to go back to her room when she has completely recovered from her surgery.
[2016-03-29 03:39] VITALS: BP 141/67
[2016-03-29 06:52] VITALS: BP 115/56
[2016-03-29 11:13] VITALS: BP 126/64
--- NOTE | 2016-03-29 13:17 | PROGRESS NOTE ---
DATE OF SERVICE: 03/29/2016 ATTENDING PHYSICIAN/PROVIDER: Qian Osullivan MD HISTORY OF PRESENT ILLNESS: The patient is day 1 status post wound closure, lateral side of her right ankle. She is doing well. I stopped her ice treatments to try to diminish the chance of arterial spasm or decreased circulation, which may increase her risk of recurrent compartment syndrome. She is having increased pain in her calf on the basis of that. I can still extend her toes passively without any recurrence of her pain. Her toes are warm, with good capillary refill and good sensation. IMPRESSION: 1. Status post wound closure, right foot, complicated by previous compartment syndrome PLAN: She is going to remain with her foot elevated today, and we will do a dressing change tomorrow in anticipation of discharge. She is nonweightbearing.
[2016-03-29 14:52] VITALS: BP 123/74
[2016-03-29 18:39] VITALS: BP 138/78
[2016-03-29 23:01] VITALS: BP 121/58
[2016-03-30 02:41] VITALS: BP 111/54
[2016-03-30 06:37] VITALS: BP 119/62
[2016-03-30] MEDS ORDERED: OXYCODONE IR PO (08:56)
--- NOTE | 2016-03-30 08:58 | Provider's Discharge Care Plan ---
Problem, Goal, Plan Problem List 1. Displaced trimalleolar fracture of right ankle Goals: Improve function Instructions: Follow up as directed
--- NOTE | 2016-03-30 08:58 | Provider's Discharge Care Plan ---
Problem, Goal, Plan Problem List 1. Displaced trimalleolar fracture of right ankle Goals: Improve function Instructions: Follow up as directed
--- NOTE | 2016-03-30 10:09 | DISCHARGE SUMMARY ---
ADMIT DATE: 03/23/2016 DISCHARGE DATE: 03/30/2016 DISCHARGE DIAGNOSIS: 1. Trimalleolar ankle fracture, right BRIEF HISTORY: The patient is a 45-year-old woman who fell on the day of admission, sustaining a right trimalleolar ankle fracture. She was admitted for care. HOSPITAL COURSE: She went to surgery on 03/24/2075, where she had an open reduction, internal fixation, complicated by a right leg compartment syndrome. She had compartment releases, but did not have full skin closure on the lateral incision because of continued high compartment pressures. Postoperatively, she did well. Her compartment pressures were within normal limits on 03/28/2016. She was returned to the operating room, where she had skin closure. Post skin closure, she has done well, with no evidence of compartment syndrome at the time of discharge. DISCHARGE INSTRUCTIONS/MEDICATIONS: She is nonweightbearing, taking oxycodone for pain. Her wound looked good at the day of discharge. She is to follow up in the office in 4 days for another dressing change, taking oxycodone for pain as an outpatient, on a low carbohydrate diet for her type 2 diabetes. She tolerated her hospitalization well.
[2016-06-19] MEDS ORDERED: IBUPROFEN400 MG PO (16:55)
== END 2016-03-30 12:15 | disposition home or self-care (01) | DRG 493 ==
LOC: ED SRH 17:20 → TRANS SRH 19:07 → ACUTE2 SRH 19:07 → 1ST SRH 03-26 05:55 → ACUTE2 SRH 03-26 06:11
PROVIDERS: ADMIT Orthopaedic Surgery
PROC: 2W3QX1Z Immobilization of Right Lower Leg using Splint (ICD-10-PCS; 2016-03-23)
PROC: 0QSG04Z Reposition Right Tibia with Internal Fixation Device, Open Approach (ICD-10-PCS; principal; 2016-03-24 15:45)
PROC: 0SSF04Z Reposition Right Ankle Joint with Internal Fixation Device, Open Approach (ICD-10-PCS; principal; 2016-03-24 15:45)
PROC: 0QSJ04Z Reposition Right Fibula with Internal Fixation Device, Open Approach (ICD-10-PCS; principal; 2016-03-24 15:45)
PROC: 0HQKXZZ Repair Right Lower Leg Skin, External Approach (ICD-10-PCS; 2016-03-28)
DX: S82.851A Displaced trimalleolar fracture of right lower leg, initial encounter for closed fracture (principal); S82.871A Displaced pilon fracture of right tibia, initial encounter for closed fracture; S93.431A Sprain of tibiofibular ligament of right ankle, initial encounter; W01.0XXA Fall on same level from slipping, tripping and stumbling without subsequent striking against object, initial encounter; T79.A21A Traumatic compartment syndrome of right lower extremity, initial encounter; E11.9 Type 2 diabetes mellitus without complications; Z68.41 Body mass index [BMI] 40.0-44.9, adult; E66.9 Obesity, unspecified; Y93.K1 Activity, walking an animal; Y92.414 Local residential or business street as the place of occurrence of the external cause; Y99.8 Other external cause status

== ENCOUNTER 2016-06-23 10:27 | Day surgery (SDC) | payer BC ==
--- NOTE | 2016-06-18 12:50 | HISTORY AND PHYSICAL ---
ADMITTED: 06/23/2016 CHIEF COMPLAINT: Loose screw in the right ankle HISTORY OF PRESENT ILLNESS: The patient had a severe fracture of her right ankle and was treated with open reduction and internal fixation back in March of this year. She had a syndesmosis screw placed and she is now returning for removal of that screw. MEDICAL/SURGICAL HISTORY: The patient's past history is positive in that she has had previous bladder cancer. She also has a history of diverticulitis and has been treated for that just with antibiotic therapy and has not had any surgery there. She has had problems with infertility which have been treated medically and she has also had previous surgical placement of PE tubes and correction of a deviated septum. MEDICATIONS: 1. Flonase inhaler 50 mcg. She takes 1 or 2 every day. 2. Ibuprofen 400 mg, which she takes on a p.r.n. basis for pain. 3. Loratadine 10 mg, she takes daily. 4. Oxycodone. She takes on a p.r.n. basis for pain. 5. Pseudoephedrine. She takes on a p.r.n. basis for nasal congestion. ALLERGIES: 1. MYBETRIQ. 2. ERYTHROMYCIN. 3. VENTOLIN. SOCIAL HISTORY: Positive in that she is a former smoker. FAMILY HISTORY: Negative for any type of bleeding or anesthesia concerns. REVIEW OF SYSTEMS: PHYSICAL EXAMINATION: HEENT: Her head is normocephalic, atraumatic. Her eyes are clear. Hearing is grossly normal. The patient has no drainage from the ear canals. Face is symmetrical. NECK: Without jugular venous distention. HEART: Regular rate and rhythm without murmurs heard. LUNGS: Clear to auscultation. EXTREMITIES: At the ankle, she still has some [id number] edema present. LAB/IMAGING: X-rays show that the fractures are healing. The alignment remains good. The mortise is maintained. There is some loosening of the syndesmosis screws placed from lateral to medial through a plate in the distal fibula. Her incisions are clean and dry and healing nicely without any signs whatsoever of any infection, no open wounds, erythema, undue warmth or drainage. IMPRESSION: 1. Loosening syndesmosis screw with a history of a previous open reduction, internal fixation of right ankle fracture. PLAN: For removal of the same. We will plan to remove just that single screw. I have explained the procedure to her, how we would go about make a small incision, removing the screw, that she can begin walking and using it right away and she can go home the same day, does not need to stay there in the hospital after the surgery and she understands and accepts. We will plan to do that surgery on 06/23/2016 barring unforeseen complication or problem.
[~2016-06-23] VITALS: Ht 177.8 cm; Wt 140.6 kg
[~2016-06-23 10:27] MED LIST changes: -OXAYDO5 MG PO
[2016-06-23] MEDS ORDERED: OXAYDO5 MG PO (13:34)
--- NOTE | 2016-06-23 14:04 | Postoperative Progress Note ---
Postop Progress Note Preoperate Diagnosis: Retained screw right ankle Postoperative Diagnosis: Same Surgeon: Isidoro Walker MD Anesthesia: General ETT Findings: Retained syndesmosis screw right ankle Procedure: Removal of screw from the right ankle Complications? No Condition: Stable EBL: 2cc Blood Administered: 0 Specimen(s) removed? No Grafts or Implants? No . (See nursing notes for details of grafts/implants)
--- NOTE | 2016-06-23 14:07 | Provider's Discharge Care Plan ---
Problem, Goal, Plan Problem List 1. Displaced trimalleolar fracture of right ankle
--- NOTE | 2016-06-23 14:07 | Provider's Discharge Care Plan ---
Problem, Goal, Plan Problem List 1. Displaced trimalleolar fracture of right ankle
--- NOTE | 2016-06-23 14:42 | OPERATIVE REPORT ---
DATE OF SURGERY: 06/23/2016 SURGEON: NANCY MARTINEZ MD PREOPERATIVE DIAGNOSIS: 1. Retained syndesmosis screw from previous open reduction, internal fixation of the right ankle POSTOPERATIVE DIAGNOSIS: 1. Retained syndesmosis screw from previous open reduction, internal fixation of the right ankle SURGICAL PROCEDURE: 1. The operation proposed was removal of syndesmosis screw from the right ankle and the operation performed the same ESTIMATED BLOOD LOSS: About 2 mL. COMPLICATIONS: None. PATHOLOGY SPECIMEN: None. SURGICAL TECHNIQUE: The patient was taken to the operating room. She was given a general anesthetic, the right leg was prepped and draped in the usual sterile fashion. I made a small longitudinal incision in line with the previous lateral incision in the ankle and this was carried down through subcutaneous tissue. The screw head was easily identified and the syndesmosis screw was removed without difficulty. The patient then had a fluoroscopic examination of the ankle with her anesthetized and no matter what combination of medial lateral, inversion, eversion, there was no tendency for the syndesmosis to widen at all and the ankle was stable and the joint space was well preserved. The patient had closure of the wound with a single 3-0 Polysorb suture and was dressed with Xeroform and gauze, and this was taped securely in place. She was awakened and taken to the recovery room. She is in stable condition.
[2016-06-23 15:50] VITALS: BP 132/60
--- NOTE | 2016-06-23 15:56 | DIAGNOSTIC IMAGING REPORT ---
PROCEDURE: XR ANKLE 1 OR 2 VIEWS - RIGHT INDICATION: Postop TECHNIQUE: AP and lateral views. COMPARISON: Right ankle x-ray 03/24/2016. FINDINGS: Trimalleolar fracture with ORIF consisting of side plate and multiple screws through the oblique fracture of the distal fibula, two screws through the posterior malleolus and two screws through the medial malleolus. There is no evidence of callus formation around the fracture of the fibula and fracture through the medial malleolus is still visible. Stable normal ankle mortise. IMPRESSION: 1. Right ankle trimalleolar fracture ORIF with delayed union/nonunion of the distal fibula and possible medial malleolus.
== END 2016-06-23 16:12 | disposition home or self-care (01) ==
LOC: SCU SRH 10:27 → OR SRH 10:27 → SCU SRH 10:29 → OR SRH 12:30
PROVIDERS: Orthopaedic Surgery
PROC: 0QPJ04Z Removal of Internal Fixation Device from Right Fibula, Open Approach (ICD-10-PCS; principal; 2016-06-23 12:30)
DX: T84.126A Displacement of internal fixation device of bone of right lower leg, initial encounter (principal); J45.909 Unspecified asthma, uncomplicated